=== PATIENT | female | born 1980 | race Caucasian/White ===

== ENCOUNTER 2021-08-30 08:08 | Outpatient (CLI) | payer MEDICAID, SELFPAY ==
--- NOTE | 2021-08-30 08:15 | MM_ITS ---
Final Report Patient: KYLE TAVARES Facility:?[facility] Patient ID:?[id number] :?[id number] Study:?XRay Breast Bilateral -08/30/2021 8:46:46 AM Ordering Physician:Alivia Palencia Final Report: BILATERAL MAMMOGRAM WITH COMPUTER-AIDED DETECTION AND TOMOSYNTHESIS TECHNIQUE: CC and MLO views were obtained. These mammographic images have been obtained using full-field digital technique. These mammographic images were interpreted with the benefit of computer-aided detection. Breast Tomosynthesis was used in this interpretation. COMPARISON FILM: Baseline. FINDINGS: The breasts are almost entirely fatty IMPRESSION: There is no radiographic evidence for malignancy. ASSESSMENT: BI-RADS Category 1: Negative RECOMMENDATION: Routine screening mammogram in 1 year. A lay language report of this examination will be provided to the patient. Grzegorz Monahan M.D. Diagnostic/Musculoskeletal Radiologist [email or web address] GINNA/pardeep / be/Dictated by: Grzegorz Monahan MD @ 08/30/2021 10:10:00 AM (Electronic Signature)
== END 2021-08-30 08:09 | disposition home or self-care (01) ==
LOC: MAMMO 08:10
PROVIDERS: PCP Family Medicine; Visit Provider Family Medicine
DX: Z12.31 Encounter for screening mammogram for malignant neoplasm of breast (principal)
CPT/HCPCS: 77063; 77067

== ENCOUNTER 2021-08-30 09:40 | Outpatient (CLI) | payer MEDICAID, SELFPAY ==
[2021-08-30 12:28] LABS: Albumin* 4.1 g/dL (3.3-5.0); Chloride* 107 mmol/L (96-114); Sodium* 136 mmol/L (135-149)
[2021-08-30 12:29] LABS: Potassium* 4.1 mmol/L (3.6-5.1)
[2021-08-30 12:31] LABS: Alkaline Phosphatase* 65 U/L (40-150); Aspartate Amino Transferase* 28 U/L (12-35); Bilirubin Total* 0.4 mg/dL (0.1-1.5); Blood Urea Nitrogen* 20 mg/dL (5-24); Carbon Dioxide* 22 mmol/L (20-32); Cholesterol* 169 mg/dL (90-199); Creatinine* 0.7 mg/dL (0.5-1.5); Estimated Glomerular Filt Rate 112 ml/min; Glucose* 101 mg/dL (60-115); Triglycerides* 130 mg/dL (40-149)
[2021-08-30 12:32] LABS: Alanine Aminotransferase* 60 U/L (4-35); Calcium* 9.3 mg/dL (8.4-10.6); HDL Cholesterol* 50 mg/dL (>=50); LDL Cholesterol Calculated 93 mg/dL (<100)
== END 2021-08-30 09:41 | disposition home or self-care (01) ==
PROVIDERS: PCP Family Medicine; Visit Provider Family Medicine
DX: Z00.00 Encounter for general adult medical examination without abnormal findings (principal); E78.5 Hyperlipidemia, unspecified; I10 Essential (primary) hypertension; R73.03 Prediabetes; E66.01 Morbid (severe) obesity due to excess calories
CPT/HCPCS: 80053; 80061

== ENCOUNTER 2021-08-31 10:54 | Outpatient (CLI) | payer MEDICAID, SELFPAY | END 2021-08-31 10:55 | disposition home or self-care (01) | LOC: NFLDREF 11:44 | PROVIDERS: PCP Family Medicine; Visit Provider Family Medicine | DX: Z01.419 Encounter for gynecological examination (general) (routine) without abnormal findings (principal); Z12.4 Encounter for screening for malignant neoplasm of cervix; I10 Essential (primary) hypertension; R73.03 Prediabetes | CPT/HCPCS: 87624; 88175 ==

== ENCOUNTER 2021-10-12 10:19 | Outpatient (CLI) | payer MEDICAID, SELFPAY ==
[2021-10-12 14:07] LABS: Albumin* 4.8 g/dL (3.3-5.0); Chloride* 100 mmol/L (96-114); Potassium* 4.4 mmol/L (3.6-5.1); Sodium* 138 mmol/L (135-149)
[2021-10-12 14:09] LABS: Bilirubin Total* 0.4 mg/dL (0.1-1.5); Creatinine* 0.6 mg/dL (0.5-1.5); Estimated Glomerular Filt Rate 116 ml/min
[2021-10-12 14:10] LABS: Alanine Aminotransferase* 41 U/L (4-35); Alkaline Phosphatase* 71 U/L (40-150); Aspartate Amino Transferase* 23 U/L (12-35); Blood Urea Nitrogen* 21 mg/dL (5-24); Calcium* 10.2 mg/dL (8.4-10.6); Carbon Dioxide* 28 mmol/L (20-32); Glucose* 106 mg/dL (60-115); Total Protein* 7.7 g/dL (6.0-8.3)
== END 2021-10-12 10:20 | disposition home or self-care (01) ==
LOC: FRMREF 10:20
PROVIDERS: PCP Family Medicine; Visit Provider Dermatology
DX: Z79.899 Other long term (current) drug therapy (principal)
CPT/HCPCS: 80053

== ENCOUNTER 2023-04-16 18:11 | Emergency (ER) | payer MEDICAID, SELFPAY ==
[2023-04-16 18:16] VITALS: BP 144/113; PULSE 91; RESP 20; TEMP 37.1; O2SAT 98; BMI 36.2
--- NOTE | 2023-04-16 19:17 | ED.ANXIETY ---
HPI - Anxiety General Chief Complaint: Anxiety Stated Complaint: shortness of breath, limbs feel heavy Time Seen by Provider: 04/16/23 18:13 History of Present Illness HPI narrative: This patient is a 43-year-old female comes in reporting and insomnia and anxiety since her dog this past week. She states that she and her got this dog 16 years ago and since then her unexpectedly and now that this dog is she is dealing with both losses again. She states that she is unable to sleep much at all and has lost her appetite. She feels some tingling sensations at times and feels tired and weak. She does not normally have symptoms of anxiety or depression but does report some previous episodes of adjustment reaction like this. Related Data Previous Rx's Medication Instructions Recorded lisinopril 20 mg tablet 20 mg PO DAILY #90 tabs 02/24/23 Allergies Allergy/AdvReac Type Severity Reaction Status Date / Time No Known Allergies Allergy Verified 10/12/21 09:55 Review of Systems Status of ROS: Reports: 10 or more systems reviewed and unremarkable except as noted in History and below Narrative: Constitutional: No fevers, no weight gain or loss. Eyes: No discharge. No vision changes. HENT: No congestion, no sore throat, no ear pain. Cardiovascular: No chest pain, no palpitations. Respiratory: No shortness of breath, no wheezes, no cough. Gastrointestinal: No abdominal pain, no vomiting, no diarrhea. Genitourinary: No dysuria, no hematuria. Musculoskeletal: Normal range of motion. Skin: No rashes, no pruritis. Neurological: No dizziness, weakness, sensory change, speech change. Endo/Heme/Allergies: No bruising or bleeding. No polydipsia. Pysch: no suicidality. Anxiety and insomnia symptoms. All other systems reviewed and are negative. [facility] Medical History (Updated 04/16/23 @ 19:20 by Alex Frye MD) On methotrexate therapy ?Z79.899 - Other buttermaker (current) drug therapy (ICD-10) Eczema ?L30.9 - Dermatitis, unspecified (ICD-10) Chronic eczema of hand ?L30.9 - Dermatitis, unspecified (ICD-10) Chronic eczema of foot ?L30.9 - Dermatitis, unspecified (ICD-10) Spontaneous (04/21/14) ?O03.9 - Complete or unspecified spontaneous without complication (ICD-10) Prediabetes ?R73.03 - Prediabetes (ICD-10) Peritonsillar abscess ?J36 - Peritonsillar abscess (ICD-10) Morbid obesity with body mass index (BMI) of 40.0 to 44.9 in adult ?E66.01 - Morbid (severe) obesity due to excess calories (ICD-10) ?Z68.41 - Body mass index [BMI] 40.0-44.9, adult (ICD-10) Morbid obesity with body mass index (BMI) of 40.0 or higher ?E66.01 - Morbid (severe) obesity due to excess calories (ICD-10) Elevated liver function tests ?R79.89 - Other specified abnormal findings of blood chemistry (ICD-10) Dyslipidemia ?E78.5 - Hyperlipidemia, unspecified (ICD-10) Adjustment disorder with mixed anxiety and depressed mood (10/18/17) ?F43.23 - Adjustment disorder with mixed anxiety and depressed mood (ICD-10) Surgical History (Updated 08/31/21 @ 10:31 by Michell Montero MD) No history of previous surgery Family History (Updated 07/22/21 @ 10:27 by Momo Narayan) Maternal Grandmother Coronary artery disease, Onset Age: 70 Diabetes High blood pressure Uncle Depression Social History (Updated 07/22/21 @ 10:28 by Momo Narayan) Narrative: Tobacco abuse, hx 7 pack years Exercises regularly, 4/week, 15 min Social drinker, 2 drinks/week , works in [employer], no kids Smoking Status: Former smoker Little interest or pleasure in doing things: not at all Feeling down, depressed, or hopeless: not at all Exam Narrative: Exam Narrative: Constitutional: Well-developed, well-nourished, no acute distress. HEENT: Normocephalic, atraumatic. Neck: Normal range of motion. Nontender. Supple. Heart: Regular. No murmurs. Normal rate. Intact distal pulses. Lungs: Clear to auscultation. No chest discomfort. No wheezes, rhonchi, or rales. Abdomen: Normal bowel sounds. Nontender. No rebound tenderness. Genitalia: Deferred. Back: No midline tenderness. Normal range of motion. Extremities: Normal range of motion. No injury. Skin: Intact. No rash. Warm. No erythema or pallor. Neurologic: No altered sensation. No weakness. Alert and oriented. Psychiatric: No suicidality. Nursing notes and vitals signs are reviewed. Const: Vital Signs, click to edit/add: Vital Signs - 24 hr 04/16/23 18:16 Temperature 98.8 F Pulse Rate [Pulse Oximeter] 91 Respiratory Rate 20 Blood Pressure [Ri ght Upper Arm] 144/113 H Pulse Oximetry 98 Oxygen Delivery Me thod Room Air Course Vital Signs Vital signs: Initial Vital Signs Temperature 98.8 F 04/16/23 18:16 Temperature Source Temporal Artery Scan 04/16/23 18:16 Pulse Rate 91 04/16/23 18:16 Respiratory Rate 20 04/16/23 18:16 Blood Pressure 144/113 H 04/16/23 18:16 Blood Pressure Mean 123 H 04/16/23 18:16 Blood Pressure Position Supine 04/16/23 18:16 Pulse Oximetry 98 04/16/23 18:16 Oxygen Delivery Method Room Air 04/16/23 18:16 Vital Signs Temperature 98.8 F 04/16/23 18:16 Pulse Rate 91 04/16/23 18:16 Respiratory Rate 20 04/16/23 18:16 Blood Pressure 144/113 H 04/16/23 18:16 Pulse Oximetry 98 04/16/23 18:16 Oxygen Delivery Method Room Air 04/16/23 18:16 Temperature 98.8 F 04/16/23 18:16 Pulse Rate 91 04/16/23 18:16 Respiratory Rate 20 04/16/23 18:16 Blood Pressure 144/113 H 04/16/23 18:16 Pulse Oximetry 98 04/16/23 18:16 Oxygen Delivery Method Room Air 04/16/23 18:16 MDM - Anxiety MDM Narrative Medical decision making narrative: This patient comes in with symptoms of anxiety and insomnia due to adjustment reaction with the loss of her dog and reminder of loss of her some years ago. I did discuss lab and imaging options with the patient but these were declined in a process of shared decision making. She did received prescription for 10 tablets of Ativan from the [facility]. I did describe signs and symptoms that would indicate need for return and re-evaluation if needed. Discharge Plan Discharge Clinical Impression: Adjustment reaction Patient Disposition: Home, Self-Care Condition: Unchanged Additional Instructions: Take medication as needed and indicated. Follow up with MD return if worsening. Prescriptions: No Action lisinopril 20 mg tablet 20 mg PO DAILY Qty: 90 0RF Follow Up/Referrals: Michell Montero MD [Primary Care Provider] - Stand Alone Forms: [employer] Info Instructions
== END 2023-04-16 19:31 | disposition home or self-care (01) ==
LOC: ED 19:30
PROVIDERS: Emergency Provider Emergency Medicine Emergency Medical Services; PCP Family Medicine
DX: F43.20 Adjustment disorder, unspecified (principal)
CPT/HCPCS: 99283; 99284

== ENCOUNTER 2023-09-20 13:13 | Outpatient (CLI) | payer MEDICAID, SELFPAY | END 2023-09-20 13:14 | disposition home or self-care (01) | LOC: NFLDREF 09-21 15:27 | PROVIDERS: PCP Family Medicine; Referring Provider Family Medicine; Visit Provider Family Medicine | DX: Z00.00 Encounter for general adult medical examination without abnormal findings (principal); R73.03 Prediabetes; E78.5 Hyperlipidemia, unspecified; I10 Essential (primary) hypertension; R79.89 Other specified abnormal findings of blood chemistry; E66.9 Obesity, unspecified | CPT/HCPCS: 80053; 80061 ==

== ENCOUNTER 2023-10-17 13:25 | Outpatient (CLI) | payer MEDICAID, SELFPAY | END 2023-10-17 13:26 | disposition home or self-care (01) | LOC: NFLDREF 10-21 17:04 | PROVIDERS: PCP Family Medicine; Referring Provider Family Medicine; Visit Provider Family Medicine | DX: I10 Essential (primary) hypertension (principal) | CPT/HCPCS: 80048 ==

== ENCOUNTER 2024-01-01 13:22 | Outpatient (CLI) | payer MEDICAID, SELFPAY | END 2024-01-01 13:23 | disposition home or self-care (01) | LOC: NFLDREF 01-03 10:20 | PROVIDERS: PCP Family Medicine; Referring Provider Family Medicine; Visit Provider Family Medicine | DX: E83.52 Hypercalcemia (principal); I10 Essential (primary) hypertension; E55.9 Vitamin D deficiency, unspecified; F41.1 Generalized anxiety disorder; R73.03 Prediabetes; R79.89 Other specified abnormal findings of blood chemistry; M81.0 Age-related osteoporosis without current pathological fracture; E66.01 Morbid (severe) obesity due to excess calories | CPT/HCPCS: 80048; 82306; 83970 ==

== ENCOUNTER 2024-01-16 16:46 | Emergency (ER) | payer MEDICAID, SELFPAY ==
[2024-01-16 16:59] VITALS: BP 139/94; PULSE 96; RESP 16; TEMP 36.9; O2SAT 99; BMI 36.2
--- NOTE | 2024-01-16 17:12 | CRLHL7_ITS ---
For Patients: As a result of the Century Cures Act, medical imaging exams and procedure reports are released immediately into your electronic medical record. You may view this report before your referring provider. If you have questions, please contact your health care provider. INDICATION: [place] a snap, swelling, pain. TECHNIQUE: Right ankle 3 view. COMPARISON: None. FINDINGS: Bones: There is an acute nondisplaced oblique fracture of the distal fibula. Plantar calcaneal spur. Alignment is normal. Joint spaces: Probable ankle joint effusion. Soft tissues: Soft tissue swelling about the ankle. IMPRESSION: Acute nondisplaced oblique fracture of the distal fibula. Dictated by Lcui Leroy MD @ 01/16/2024 6:09:08 PM (Electronically Signed)
--- NOTE | 2024-01-16 17:23 | ED_ITS ---
HPI - Extremity Injury (Lower) General Time Seen by Provider: 17:23 Date Seen: 01/16/24 Chief Complaint: Extremity Pain/Injury, Lower Stated Complaint: R leg ankle snapped Time Seen by Provider: 01/16/24 17:22 Source: patient, RN notes reviewed and old records reviewed Mode of arrival: wheelchair Limitations: no limitations History of Present Illness HPI Narrative: 43-year-old female who presents today with right ankle pain. Patient's dogs pulled her and she landed heavily on the right ankle, felt a pop. No other injuries. Related Data Previous Rx's ?Medication ?Instructions ?Recorded lorazepam 0.5 mg tablet (Ativan) 0.5 mg PO .qd-bid PRN Panic attack 09/21/23 #10 tabs cholecalciferol (vitamin D3) 25 25 mcg PO QDAY #90 tabs 01/03/24 mcg (1,000 unit) tablet lisinopril 30 mg tablet 30 mg PO QDAY #90 tabs 01/03/24 semaglutide (weight loss) 0.25 0.25 mg (0.5 mL) subcut QWEEK #2 mL 01/12/24 mg/0.5 mL subcutaneous pen injector (Wegovy) Allergies Allergy/AdvReac Type Severity Reaction Status Date / Time No Known Allergies Allergy Verified 01/16/24 16:58 [facility] Medical History (Updated 01/16/24 @ 17:28 by Jean Jay MD) Generalized anxiety disorder ?F41.1 - Generalized anxiety disorder (ICD-10) Cigarette smoker ?F17.210 - Nicotine dependence, cigarettes, uncomplicated (ICD-10) Hypertension, essential ?I10 - Essential (primary) hypertension (ICD-10) On methotrexate therapy (~10/2021) ?Z79.899 - Other custom stock maker (current) drug therapy (ICD-10) Eczema ?L30.9 - Dermatitis, unspecified (ICD-10) Chronic eczema of hand ?L30.9 - Dermatitis, unspecified (ICD-10) Chronic eczema of foot ?L30.9 - Dermatitis, unspecified (ICD-10) Spontaneous (04/21/14) ?O03.9 - Complete or unspecified spontaneous without complication (ICD-10) Prediabetes ?R73.03 - Prediabetes (ICD-10) Peritonsillar abscess ?J36 - Peritonsillar abscess (ICD-10) Morbid obesity with body mass index (BMI) of 40.0 to 44.9 in adult ?E66.01 - Morbid (severe) obesity due to excess calories (ICD-10) ?Z68.41 - Body mass index [BMI] 40.0-44.9, adult (ICD-10) Elevated liver function tests ?R79.89 - Other specified abnormal findings of blood chemistry (ICD-10) Dyslipidemia ?E78.5 - Hyperlipidemia, unspecified (ICD-10) Adjustment disorder with mixed anxiety and depressed mood (10/18/17) ?F43.23 - Adjustment disorder with mixed anxiety and depressed mood (ICD-10) Surgical History (Updated 08/31/21 @ 10:31 by Michell Montero MD) No history of previous surgery Family History (Updated 09/21/23 @ 10:19 by Michell Montero MD) Maternal Grandmother Coronary artery disease, Onset Age: 70 Diabetes High blood pressure Uncle Depression Social History (Updated 09/21/23 @ 11:18 by Michell Montero MD) Narrative: , [employer], no kids, [employer] 6 months Tobacco abuse, hx 7 pack years Exercises regularly, 4/week, 15 min Social drinker, 2 drinks/week What is your current living situation?: I presently have a place to live Problems where you live: no known problems In the past 12 months, utilities in danger of being shut off: no In the past 12 mos, have been you worried that your food would run out before you had money to buy more?: never true In the past 12 mos, the food you bought just didn't last and you didn't have money to buy more?: never true Smoking Status: Former smoker How often does anyone, including family, friends and others, physically hurt you : never How often does anyone, including family, friends and others, insult or talk down to you: rarely How often does anyone, including family, friends and others, threaten you with harm: never How often does anyone, including family, friends and others, scream or curse at you: rarely Health Related Social Needs: Other personal risk factors, not elsewhere classified (Z91.89) Exam Narrative: Exam Narrative: General: well nourished , NAD Head: Atraumatic and normocephalic ENT: External ears and external nose are normal Eyes: Conjunctiva clear, pupils are equal reactive, external ocular motions are intact Neck: Full spontaneous range of motion of the neck Lungs: No respiratory distress Musculoskeletal: Right ankle swelling, tenderness particularly of the distal fibula, no tenderness of the proximal fibula, no tenderness at the base of the 5th metatarsal Neurologic: No gross focal neurologic deficits Skin: No rashes Psych: Mood and affect are appropriate Const: Vital Signs, click to edit/add: Vital Signs - 24 hr 01/16/24 16:59 Temperature 98.4 F Pulse Rate [Pulse Oximeter] 96 Respiratory Rate 16 Blood Pressure [Ri ght Upper Arm] 139/94 H Pulse Oximetry 99 Oxygen Delivery Me thod Room Air Course Course ED Course: Patient seen examined, presents with right ankle pain. Swelling and tenderness over the distal fibula. X-ray ordered and independently interpreted by me with nondisplaced fractures does fibula, ankle mortise is intact . Patient will be placed in a walking boot with nonweightbearing, follow-up with orthopedics. Vital Signs Vital signs: Initial Vital Signs Temperature 98.4 F 01/16/24 16:59 Temperature Source Temporal Artery Scan 01/16/24 16:59 Pulse Rate 96 01/16/24 16:59 Respiratory Rate 16 01/16/24 16:59 Blood Pressure 139/94 H 01/16/24 16:59 Blood Pressure Mean 109 H 01/16/24 16:59 Blood Pressure Position Sitting 01/16/24 16:59 Pulse Oximetry 99 01/16/24 16:59 Oxygen Delivery Method Room Air 01/16/24 16:59 Vital Signs Temperature 98.4 F 01/16/24 16:59 Pulse Rate 96 01/16/24 16:59 Respiratory Rate 16 01/16/24 16:59 Blood Pressure 139/94 H 01/16/24 16:59 Pulse Oximetry 99 01/16/24 16:59 Oxygen Delivery Method Room Air 01/16/24 16:59 Temperature 98.4 F 01/16/24 16:59 Pulse Rate 96 01/16/24 16:59 Respiratory Rate 16 01/16/24 16:59 Blood Pressure 139/94 H 01/16/24 16:59 Pulse Oximetry 99 01/16/24 16:59 Oxygen Delivery Method Room Air 01/16/24 16:59 Discharge Plan Discharge Clinical Impression: Closed fracture of right distal fibula Patient Disposition: Home, Self-Care Condition: Stable Instructions: Closed Reduction Internal Fixation of Leg Fracture in Adults (DC) Additional Instructions: No weight bearing. Follow-up with orthopedics. [facility] [address] [place] [id number] Activity Level: No Weight Bearing Discharge Diet: Regular Prescriptions: No Action lisinopril 30 mg tablet 30 mg PO QDAY Qty: 90 3RF cholecalciferol (vitamin D3) 25 mcg (1,000 unit) tablet 25 mcg PO QDAY Qty: 90 4RF lorazepam [Ativan] 0.5 mg tablet 0.5 mg PO .qd-bid PRN (Reason: Panic attack) Qty: 10 0RF Rx Instructions: 1 -2 tablet po, only as needed for severe anxiety attack. Prescription has to last 1 year Wegovy 0.25 mg/0.5 mL pen injector 0.25 mg subcut QWEEK Qty: 2 0RF Rx Instructions: administer weeks 1 through 4 of therapy Follow Up/Referrals: Michell Montero MD [Primary Care Provider] - Stand Alone Forms: [employer] Info Instructions
== END 2024-01-16 17:54 | disposition home or self-care (01) ==
LOC: ED 17:44
PROVIDERS: Emergency Provider Family Medicine; PCP Family Medicine
DX: S52.501A Unspecified fracture of the lower end of right radius, initial encounter for closed fracture (principal); W18.39XA Other fall on same level, initial encounter; Y93.K1 Activity, walking an animal
CPT/HCPCS: 73610; 99283; 99284

== ENCOUNTER 2024-06-11 13:45 | Outpatient (RCR) | payer MEDICAID, SELFPAY ==
--- NOTE | 2024-04-03 17:44 | PT.OPEX ---
PT [place] Outpatient Eval PT [facility] Outpatient Eval Start: 04/03/24 08:29 Freq: Status: Active Protocol: Document 04/03/24 12:38 KIRAN (Rec: 04/03/24 17:42 KIRAN [id number]) E-signed By Tiffany Briscoe PT Physical Therapy Outpatient Evaluation Insurance Information Recert Due Date 07/01/24 Insurance Name Medicaid,[employer] Medical Diagnosis RIGHT DISTAL FIBULAR FX (MCCORD B) Treating Diagnosis RIGHT ANKLE WEAKNESS RIGHT ANKLE PAIN DIFFICULTY AMB Imaging Report Information 01/16/24:XRAYS R NON DISPLACED DISTAL FIBULAR FX - MCCORD B Referring MD DR. IRVING / JOSH LOWE Subjective Preferred Name KYLE Subjective PATIENT DESCRIBES PLAYING WITH 2 DOGS AND BEING STRUCK FROM BEHIND TWISTING HER ANKLE SHE FELL TO THE GROUND. ER VISIT ON 01/16/24 REVEALED A FRACTURE AND SHE WAS PLACED IN A CAM BOOT. INITIALS VISITS WITH DR. IRVING AND JOSH LOWE REQUIRED NWB IN HER CAM BOOT INITIALLY THEN PLACED IN A LEG CAST D/T HEALING NEEDS. 03/21/24, PATIENT CAST REMOVED AND PROVIDED INSTRUCTIONS TO WBAT ALLOWING FOR PWB FOR FIRST 1-2 WEEKS W/ CRUTCH OR WALKER THEN WBAT AND TO BEGIN THERAPY. Precautions Treatment Precautions/Contraindications 03/21/24: WBAT Objective Other/Pertinent Objective FOOT ALIGNMENT/GAIT ANKLE ROM PF: R 12 DF: R- 26 (FROM NEUTRAL) INversion: R- 14 EVersion: R- 12 LE MMT: DEFERRED JOINT MOBILITY/PALPATION : MIN DISTAL FIB TENDERNESS AND SURROUNDING LIGAMENTOUS STRUCTURES. MODERATE HYPOMOBILITY OF THE TALOCRURAL JOINT, SUBTALAR JOINT, TRANSVERSE TARSAL; MUSCULAR TIGHTNESS (ACHILLES, GREAT TOE /INTRINSIC MM OF FOOT, ANT TIB, FIBULARIS TX: AROM DF/PF, IN/EV, [place] LEFT /RIGHT X 15 EA SEATED CALF STRETCH 2 X 30 SEC SEATED SOLEUS STRETCH 2 X 30 SEC SEATED INTRINSIC TOE SCRUNCHING PAPER CENTRIFUGE SEPARATOR OPERATOR X 1' SEATED IN/EV X 1' SEATED GREAT TOE/LESSER TOE STRETCH X 15 SEC SEATED ANT TIB STRETCH X 15 SEC SEATED HR/TR X 15 SEATED KNEE EXT X 15 SEATED MARCHING X 15 STS X 10 ADDITIONAL TO HEP: BRIDGE SIDELYING CLAM SLR Functional Test Performed & Score [id number] Assessment Assessment/Impression PATIENT IS A [address] IRVING/JOSH LOWE TO EVAL AND TREAT S/P DISTAL FIBULAR FRACTURE (01/15) NON-OPERATIVE AND POST IMMOBILIZATION . PATIENT DEMONSTRATES SIGNS AND SYMPTOMS CONSISTENT WITH IMMOBILIZED ANKLE JOINT AND NWB CONTRIBUTING TO THEIR FUNCTIONAL IMPAIRMENTS OF DIFFICULTY AMB, STAIRS, TRANSFERS, AND STDG NEEDED FOR BASIC ADL'S. PATIENT HAS NOTABLE OBJECTIVE FINDING INCLUDING DECREASED ROM, STRENGTH, BALANCE DEFICITS, AND POOR GAIT MECHANICS WHICH ALL ARE CONTRIBUTING TO THE CLINICAL IMPRESSION. PATIENT IS A GOOD CANDIDATE FOR SKILLED PHYSICAL THERAPY TO ADDRESS AFOREMENTIONED DEFICITS ABOVE IN ORDER TO RETURN TO ASYMPTOMATIC STATUS AND RETURN TO UNRESTRICTED MVMTS. INTERVENTION IS NECESSARY BY WAY OF THERAPEUTIC EXERCISES, MANUAL THERAPY, NEUROMUSCULAR EDUCATION, AND STABILIZATION/ PROPRIOCEPTION. PLEASE REFER TO APPROPRIATE SECTION WITHIN THIS EVALUATION FOR COMPLETE LIST OF GOALS AND PLAN OF CARE . DISCHARGE PLAN AND CRITERIA IS FOR PATIENT TO ACHIEVE THE GOALS LISTED BELOW OR UNTIL MAX POTENTIAL MET. PATIENT VERBALIZED UNDERSTANDING AND AGREEABLE TO POC, FREQ, AND GOALS ESTABLISHED. Primary Functional Limitations AMBULATION UNASSISTED STAIRS STDG TRANSFERS STOOPING SQUATTING Plan of Care Rehabilitation Potential Good Physical Therapy Goals 1. IMPROVE CORE/LE/ANKLE STRENGTH AND ROM OVER THE NEXT 6-8 WEEKS FOR IMPROVED FUNCTIONAL MOBILITY, BALANCE, AND GAIT TO DECREASE RISK FOR FALLS. 2. IMPROVE MCTSB SCORE FROM 0/ 0/0/0 TO 30/30/30/15 AND SLS FROM 0 TO 30 OVER THE NEXT 6-8 WEEKS FOR IMPROVED SAFETY WITH DAILY ACTIVITIES AND DECREASED RISK OF FALLS. 3. IMPROVE BALANCE, COORDINATION, ROM, STRENGTH OVER THE NEXT 6-8 WEEKS FOR IMPROVED GAIT AND SAFETY FOR COMMUNITY NAVIGATION WELL PEER CENTERED ACTIVITIES. 4. PATIENT WILL BE INDEPENDENT WITH HER HEP WITH IN 8-12 WEEKS FOR PROGRESSION TOWARD THE ABOVE MENTIONED GOALS, CONTINUED SELF IMPROVEMENT WITH STRENGTH, COORDINATION, GAIT, AND SAFETY AWARENESS. Coordination/Communication With Referral Source Treatment Plan/Direct Interventions Electrical Stimulation,Gait Training,Heat,Ice/Cold/ Vasopneumatic,Joint Mobilization,Manual Therapy, Neuromuscular Re-ed,Self-Care/ Home Management,Therapeutic Activities,Therapeutic Exercises,Ultrasound Frequency/Duration 1-2X/WK Patient Will Be Discharged From Therapy Completion of LTG(s), Independently Progressing Evaluation Billing Untimed Code Treatment Minutes 15 PT Eval No Charge No Complexity Low Certification Information Initial Certification Date 04/03/24 Ending Certification Date 07/01/24 Provider Signature Required Yes Provider Signature Shows Agreement With POC & Medical Necessity Physician NPI Number Write NPI# Here Physician Comment/Change : Physician Signature & Date Requested Please Sign/Date Here
== END 2024-08-28 14:35 | disposition home or self-care (01) ==
PROVIDERS: PCP Family Medicine; Visit Provider Physician Assistant Surgical
DX: S82.401D Unspecified fracture of shaft of right fibula, subsequent encounter for closed fracture with routine healing (principal); Z51.89 Encounter for other specified aftercare
CPT/HCPCS: 97110; 97116; 97161